=== PATIENT | female | born 1955 | race African-American/Black ===

== ENCOUNTER 2024-08-01 06:28 | Day surgery (SDC) | payer OTHER ==
[~2024-08-01] VITALS: Ht 170.2 cm; Wt 96.6 kg
[2024-08-01] MEDS ORDERED: MEPERIDINE 100 MG INJ. 100 MG/ML VIAL ONE (07:24)
[2024-08-01] MEDS ORDERED: MIDAZOLAM HCL 5 MG/5 ML VIAL ONE (07:24)
[2024-08-01] MEDS ORDERED: SIMETHICONE 40 MG/0.6 ML ML ONE (08:07)
[2024-08-01 14:02] VITALS: BP_SYST 148; PULSE 60; RESP 16
== END 2024-08-01 09:42 | disposition home or self-care (01) ==
LOC: SDS 06:28 → SMU 06:28 → SDS 09:42
PROVIDERS: ATTEND Internal Medicine
DX: Z12.11 Encounter for screening for malignant neoplasm of colon (principal); D12.3 Benign neoplasm of transverse colon; D12.4 Benign neoplasm of descending colon; K64.4 Residual hemorrhoidal skin tags; K64.8 Other hemorrhoids; K57.30 Diverticulosis of large intestine without perforation or abscess without bleeding; Z80.0 Family history of malignant neoplasm of digestive organs; I10 Essential (primary) hypertension; E11.9 Type 2 diabetes mellitus without complications; E78.5 Hyperlipidemia, unspecified; Z90.710 Acquired absence of both cervix and uterus; Z88.1 Allergy status to other antibiotic agents; Z79.4 Long term (current) use of insulin; Z79.899 Other long term (current) drug therapy
CPT/HCPCS: 45385; 82948; 88305; 99152; 99153; G0378; J2250; J2175